=== PATIENT | male | born 2000 | race African-American/Black ===

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

== ENCOUNTER 2020-02-15 12:43 | Emergency (ER) | payer OTHER ==
[~2020-02-15] VITALS: Ht 185.4 cm; Wt 72.6 kg
[~2020-02-15 12:43] MED LIST changes: +AZITHROMYCIN 2250 MG PO
[2020-02-15] MEDS ORDERED: NOHOMEMEDICATIONS (12:53)
[2020-02-15] MEDS ORDERED: IBUPROFEN 600600 M1 PO (13:51)
[2020-02-15 15:40] VITALS: BP 116/61
== END 2020-02-15 15:40 | disposition home or self-care (01) ==
LOC: ER 12:43
DX: M25.572 Pain in left ankle and joints of left foot (principal); M79.672 Pain in left foot; M79.89 Other specified soft tissue disorders; R20.0 Anesthesia of skin; X50.1XXA Overexertion from prolonged static or awkward postures, initial encounter; Y93.67 Activity, basketball; Y92.310 Basketball court as the place of occurrence of the external cause; Y99.8 Other external cause status